=== PATIENT | female | born 1970 | race Caucasian/White ===

== ENCOUNTER 2020-04-21 00:49 | Emergency (ER) | payer SELFPAY ==
[~2020-04-21] VITALS: Ht 170.2 cm; Wt 81.6 kg
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
--- NOTE | 2020-04-21 01:05 | NUR ---
WOUND CARE PROVIDED TO PATIENT
--- NOTE | 2020-04-21 04:08 | NUR ---
FOOD AND WATER PROVIDED. PT AWAKE, RESTING COMFORTABLY IN BED. VSS. NO ACUTE DISTRESS NOTED. SITTER AT BEDSIDE FOR SAFETY
--- NOTE | 2020-04-21 06:00 | NUR ---
pt appears sober, able to walk with steady gait. provided food and drink. able to speak in complete sentences.
--- NOTE | 2020-04-21 06:16 | NUR ---
pt alert and oriented, pt denies any si/hi. vss. -sob, -cp
--- NOTE | 2020-04-21 06:24 | NUR ---
Patient discharged to home in stable condition. Written and verbal after care instructions given. Patient verbalizes understanding of instruction.
[2020-04-21 06:25] VITALS: BP 119/75
== END 2020-04-21 06:25 | disposition home or self-care (01) ==
LOC: ER 00:52
DX: S91.111A Laceration without foreign body of right great toe without damage to nail, initial encounter (principal); F10.129 Alcohol abuse with intoxication, unspecified; Y90.9 Presence of alcohol in blood, level not specified; X58.XXXA Exposure to other specified factors, initial encounter; Y93.89 Activity, other specified; Y92.89 Other specified places as the place of occurrence of the external cause; Y99.8 Other external cause status
CPT/HCPCS: 99283; A6403

== ENCOUNTER 2021-10-17 23:18 | Emergency (ER) | payer SELFPAY ==
[~2021-10-17] VITALS: Ht 165.1 cm; Wt 100.2 kg
[2021-10-18] MEDS ORDERED: CYCLOBENZAPRINE 10 MG TABLET ONE (00:08)
[2021-10-18] MEDS ORDERED: IBUPROFEN 600 MG TABLET ONE (00:08)
--- NOTE | 2021-10-18 00:22 | NUR ---
PICK UP DRIVER AT PT'S BEDSIDE
[2021-10-18] MEDS ORDERED: CYCLOBENZAPRINE 10 MG TABLET PO ONE (00:30)
[2021-10-18] MEDS ORDERED: IBUPROFEN 600 MG TABLET PO ONE (00:30)
[2021-10-18] MEDS ORDERED: NAPR-1164 PO (01:24)
[2021-10-18] MEDS ORDERED: CYCL5TAB PO (01:24)
--- NOTE | 2021-10-18 01:51 | NUR ---
Patient discharged to home in stable condition. Written and verbal after care instructions given. Patient verbalizes understanding of instruction.
[2021-10-18 01:52] VITALS: BP 138/88
== END 2021-10-18 01:52 | disposition home or self-care (01) ==
LOC: ER 23:34
DX: M62.838 Other muscle spasm (principal); Z88.8 Allergy status to other drugs, medicaments and biological substances; Z79.899 Other long term (current) drug therapy; W17.89XA Other fall from one level to another, initial encounter; Y93.89 Activity, other specified; Y92.89 Other specified places as the place of occurrence of the external cause; Y99.8 Other external cause status
CPT/HCPCS: 71100-TC